=== PATIENT | female | born 1955 | race Caucasian/White ===

== ENCOUNTER 2023-09-28 15:18 | Emergency (ER) | payer MEDICARE, OTHER ==
[2023-09-28 16:32] LABS: Hematocrit 44.4 % (36.0-47.0); Hemoglobin 13.4 g/dL (12.0-16.0); Mean Corpuscular Volume 99.6 fl (78.0-98.0); Red Blood Cell (RBC) Count 4.46 mill/uL (4.20-5.40); White Blood Cell (WBC) Count 7.3 10x3/uL (4.8-10.8)
[2023-09-28 16:33] LABS: #Eosinphils 0.2 thou/uL (0.0-0.7); #Lymphocytes 1.4 thou/uL (1.20-3.40); #Monocytes 0.5 thou/uL (0.11-0.59); #Neutrophils 5.2 thou/uL (1.40-6.50); %Basophils 0.3 % (0.0-1.0); %Lymphocytes 18.7 % (21.0-51.0); %Monocytes 6.3 % (0.0-10.0); %Neutrophils 71.7 % (42.0-75.0); Manual Diff?? NO; Mean Corpuscular HGB CONC 30.1 g/dL (32.0-36.0); Mean Corpuscular Hemoglobin 29.9 pg (27.0-31.0); Mean Platelet Volume 10.3 fL (7.4-10.4); Platelet Count 120 10x3/uL (130-400)
[2023-09-28 17:03] LABS: ALT (SGPT) 19 U/L (8-55); AST (SGOT) 23 U/L (5-34); Albumin 3.7 g/dL (3.4-4.8); Alkaline Phosphatase 48 U/L (40-110); BUN (Urea Nitrogen) 57 mg/dL (9.8-20.1); Bilirubin, Total 0.5 mg/dL (0.2-1.2); Calc. Creatinine Clearance 0 mL/min (70-130); Calcium 10.4 mg/dL (7.8-10.44); Carbon Dioxide 31 mmol/L (23-31); Estimated GFR 29; Globulin 3.1 g/dL (2.4-3.5); Glucose 221 mg/dL (80-115); Protein, Total 6.8 g/dL (5.8-8.1)
[2023-09-28 17:21] LABS: Potassium 4.5 mmol/L (3.5-5.1); Sodium 140 mmol/L (136-145)
[2023-09-28 17:23] LABS: Influenza A by NAA Not Detected (NotDetected); Influenza B by NAA Not Detected (NotDetected); SARS-CoV-2 NAA Rapid Test Not Detected (NotDetected)
[2023-09-28 18:32] LABS: Bilirubin Negative (Negative); Blood, Urine Negative (Negative); Clarity Slightly Cloudy (Clear); Glucose, Urine (Dipstick) Negative (Negative); Ketone, Urine Negative (Negative); Leukocyte Large (Negative); Nitrite Negative (Negative); Protein, Urine (Dipstick) Negative (Neg-Trace)
[2023-09-28 18:33] LABS: Bacteria/HPF 3+ HPF (None Seen); CAUTI Indications for Culture Alt mental st,lethar; RBC/HPF 0-3 HPF (0-3); Urine Culture Reflex Yes Yes
[2023-09-28] MEDS ORDERED: Sodium Chloride 0.9% 100 ML ONE (19:07)
[2023-09-28] MEDS ORDERED: cefTRIAXone (ROCEPHIN) 1 GM VIAL ONE (19:07)
[2023-09-28 19:08] LABS: Chloride 94 mmol/L (98-107)
[2023-09-28 19:09] LABS: Anion Gap 22 mmol/L (10-20)
== END 2023-09-28 19:31 ==
LOC: NAV ERS 15:18
DX: N39.0 Urinary tract infection, site not specified (principal); I48.91 Unspecified atrial fibrillation; J44.9 Chronic obstructive pulmonary disease, unspecified; I13.0 Hypertensive heart and chronic kidney disease with heart failure and stage 1 through stage 4 chronic kidney disease, or unspecified chronic kidney disease; I50.9 Heart failure, unspecified; E11.22 Type 2 diabetes mellitus with diabetic chronic kidney disease; N18.9 Chronic kidney disease, unspecified; Z79.4 Long term (current) use of insulin; Z79.899 Other long term (current) drug therapy; Z79.01 Long term (current) use of anticoagulants
CPT/HCPCS: 51701; 71045; 80053; 81001; 84443; 85025; 87077; 87086; 87186; 93005; 96374; J0696; J3490